=== PATIENT | female | born 2000 | race American Indian/Alaskan Native ===

== ENCOUNTER 2022-02-21 08:51 | Emergency (ER) | payer SELFPAY ==
--- NOTE | 2022-02-21 09:55 | XRay Report ---
CHEST 2 VIEWS INDICATION / CLINICAL INFORMATION: chest pain. COMPARISON: None available. FINDINGS: SUPPORT DEVICES: None. HEART / MEDIASTINUM: No significant abnormality. LUNGS / PLEURA: No significant pulmonary or pleural abnormality. No pneumothorax. ADDITIONAL FINDINGS: No significant additional findings. IMPRESSION: 1. No acute findings. Signer Name: Kahlil Gabriel Jr, MD Signed: 02/21/2022 9:51 AM Workstation Name: [id number]
--- NOTE | 2022-02-21 10:45 | Emergency Department Report ---
Minor Respiratory - HPI Chief Complaint: Chest Pain Stated Complaint: CHEST PAIN/FLU SX Time Seen by Provider: 02/21/22 10:45 ED Review of Systems ROS: Stated complaint: CHEST PAIN/FLU SX Other details as noted in HPI Comment: All other systems reviewed and negative ED Past Medical Hx - Past Medical History Previous Medical History?: No - Surgical History Past Surgical History?: No - Family History Family history: no significant - Social History Smoking Status: Never Smoker Substance Use Type: Alcohol - Medications Home Medications: Home Medications Medication Instructions Recorded Confirmed Last Taken Type methylPREDNISolone [Medrol 4MG 4 mg PO FS #1 tab.ds.pk 02/21/22 Unknown Rx DOSEPAK (21 tabs)] Minor Respiratory Exam - Exam General: Vital signs noted. No distress. Alert and acting appropriately. HEENT: Yes Pharyngeal Erythema, Yes Moist Mucous Membranes, No Pharyngeal Exudates, No Rhinorrhea, No Conjuctival Injection, No Frontal Tenderness, No Maxillary Tenderness Ear: Neither TM Bulge, Neither TM Erythema, Neither EAC Pain, Neither EAC Discharge Neck: Yes Supple, No Adenopathy Lungs: Yes Good Air Exchange, No Wheezes, No Ronchi, No Stridor, No Cough, No Labored Respirations, No Retractions, No Use of Accessory Muscles, No Other Abnormal Lung Sounds Heart: Yes Regular, No Murmur Abdomen: Yes Normal Bowel Sounds, No Tenderness, No Peritoneal Signs Skin: No Rash, No Edema Neurologic: Alert and oriented, no deficits. Musculoskeletal: Unremarkable. ED Course Vital Signs 02/21/22 09:13 Temperature 99.1 F Pulse Rate 86 Respiratory 16 Rate Blood Pressure 125/85 [Left] O2 Sat by Pulse 100 Oximetry ED Medical Decision Making - Radiology Data Radiology results: report reviewed, image reviewed nap Critical care attestation.: If time is entered above; I have spent that time in minutes in the direct care of this critically ill patient, excluding procedure time. ED Disposition Clinical Impression: Sinusitis Disposition: 01 HOME / SELF CARE / HOMELESS Is pt being admited?: No Does the pt Need Aspirin: No Condition: Stable Instructions: Sinusitis, Adult, [id number] Additional Instructions: Diet and activity as tolerated medication as ordered today for inflammation Motrin or Tylenol can be used for pain [id number]-[id number] Flonase may help with your symptoms Otad-qso-xdatbbk Zyrtec may help with your symptoms Follow-up with PCP if your symptoms persist. I have given you referral to primary care for your nonmedical emergencies Stay well-hydrated with water Referrals: LETICIA MCRAE MD [Staff Physician] - 3-5 Days Forms: Work/School Release Form(ED) Time of Disposition: 10:49
[2022-02-21 11:54] VITALS: BP 130/80
--- NOTE | 2022-02-23 09:57 | Electrocardiograph Report ---
[facility] Test Date: 2022-02-21 Test Time: 09:23:55 Pat Name: JOSHUA SHANNON Department: Room: Gender: F Specification Consultant: DUDLEY : 2000 Requested By: BINU CRUZ Order Number: [id number] Reading MD: Víctor Cardenas Measurements Intervals [place] Rate: 75 P: 74 VT: 140 QRS: 70 QRSD: 89 T: 42 QT: 345 QTc: 386 Interpretive Statements Sinus rhythm Probable left atrial enlargement No previous ECG available for comparison Electronically Signed On 02-23-2022 9:57:00 EDT by Víctor Cardenas
== END 2022-02-21 11:52 | disposition home or self-care (01) ==
LOC: ED 08:51
DX: J01.90 Acute sinusitis, unspecified (principal); F10.20 Alcohol dependence, uncomplicated
CPT/HCPCS: 71046; 93005; 99283